=== PATIENT | female | born 1940 | race Caucasian/White ===

== ENCOUNTER → 2016-10-01 | Outpatient (CLI) | payer MEDICARE, BC ==
--- NOTE | ~2016-10-01 | NDGEN ---
PATIENT'S NAME: KATE RODRIGEZ [facility] AGE: 76 Y [address] ROOM: [place] [id number] LOCATION: [facility] ADMIT DATE: 10/01/2016 Neurodiagnostics DISCHARGE DATE: FAMILY PHYSICIAN: Alfred Caal DO ATTENDING PHYSICIAN: Luis Miguel Roca DATE OF PROCEDURE: 10/01/2016 CLINICAL DIAGNOSIS: STUDY: Nerve conduction study of the bilateral upper extremities as well as a needle EMG of the right upper extremity. INDICATION: This is a 76-year-old female who has pain and numbness into the median distribution of the right hand. She also has atrophy of the right thenar eminence. Secondarily, she has muscle spasms of the right neck with increased bulk and tenderness of the paraspinal muscles on the right. Physical exam reveals normal power of the proximal and distal muscles of the bilateral upper extremities. 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 Nerve conduction studies were performed in the motor and sensory median and ulnar nerves. In the right median nerve, there was normal motor onset latencies, but diminished amplitudes of the compound motor action potentials at the wrist. At the area of the elbow, stimulation at that location did not produce a recordable compound motor action potential, this was placed in multiple places at the elbow. This may represent a focal area of anastomosis at the elbow. The ulnar motor nerves revealed normal motor onset latencies, amplitudes, and nerve conduction velocities. On the sensory conduction studies, there was a delay in the right sensory median nerve at the wrist compared to the left hand, though the nerve conduction velocities were still preserved. Of most value, a needle EMG was performed and was placed into the abductor pollicis brevis muscles. There was abnormal spontaneous electrical activity including positive sharp waves and fibrillation potentials seen in the abductor pollicis brevis muscle. Activation of this muscle showed severely reduced recruitment of motor unit action potentials, and the rest of the arms survey including the biceps muscle, triceps muscles, and deltoid muscles as well as the pronator teres muscle, all these muscles fired normally with normal sizes of motor unit action potentials and there was no evidence of any abnormal spontaneous electrical activity when the arm was at rest. There was occasional muscle spasm seen when the arm was placed in a certain position and this seemed to be highlighted at the right trapezius crest muscles PATIENT'S NAME: KATE RODRIGEZ [facility] AGE: 76 Y [address] ROOM: [place] [id number] LOCATION: [facility] ADMIT DATE: 10/01/2016 Neurodiagnostics DISCHARGE DATE: FAMILY PHYSICIAN: Alfred Caal DO ATTENDING PHYSICIAN: Luis Miguel Roca consistent with muscle spasming of the right neck muscles. 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 There is secondary atrophy to the thenar eminence consistent with an active median neuropathy, likely due to compression at the carpal tunnel though the speed of the median motor onset latencies did seem to be preserved. 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 Nonetheless based upon very active process for fibrillation potentials and progressive diminishment of recruitment of motor units, the patient is recommended for carpal tunnel release surgery at the right wrist. MD LIANNE ORLANDO/kendall /[id number] Corrected work type 10/02/2016 AO dtt: 10/10/16 1404 , BERNARD DE LA VEGA dtd: 10/01/16 1827
== END ==
LOC: GNEU 14:44
DX: R20.0 Anesthesia of skin (principal); M89.8X8 Other specified disorders of bone, other site; G62.9 Polyneuropathy, unspecified